=== PATIENT | female | born 1995 | race Two or more races ===

== ENCOUNTER 2016-11-09 17:49 | Emergency (ER) | payer OTHER ==
[~2016-11-09] VITALS: Ht 157.5 cm; Wt 63.5 kg
[~2016-11-09 17:49] MED LIST: AZITHROMYCIN250 MG ORAL; IBUPROFEN600 MG ORAL; NKM
[2016-11-09 18:09] VITALS: BP 109/72
[2016-11-09 18:44] LABS: APPEARANCE,URINE CLEAR; KETONES,URINE NEGATIVE (NEGATIVE); LEUKOCYTE ESTERASE ,URINE 3+ (NEGATIVE); NITRITE,URINE NEGATIVE (NEGATIVE); PH,URINE 5 (4.5-8.0); PROTEIN,URINE NEGATIVE (NEGATIVE); UROBILINOGEN,URINE NORMAL MG/DL (0.0-1.0)
[2016-11-09 18:55] LABS: RBC,URINE 0-2 /HPF (0 - 2); WBC,URINE 0-2 /HPF (0 - 2)
[2016-11-09 18:56] LABS: BACTERIA,URINE FEW /HPF; SQUAMOUS EPITHELIAL CELL,UR OCCASIONAL /LPF (NONE/OCC)
[2016-11-09] MEDS ORDERED: TERBINAFINE HC250 MG PO (19:21)
[2016-11-09] MEDS ORDERED: NITROFURANTOIN100 M2 ORAL (19:21)
[2016-11-09] MEDS ORDERED: LAMISIL15 GM TOPIC (19:21)
[2016-11-09 19:28] VITALS: BP 109/72
--- NOTE | 2016-11-09 21:26 | Emergency Room Report ---
History of Present Illness General Chief Complaint: Skin Rash/Abscess Source: Patient Present Illness HPI The patient is a 21-year-old female presenting for rash. The patient states that a rash on the scalp began one year prior she was diagnosed with eczema and given steroid cream which did not help. She then had a second opinion and was diagnosed with a fungal infection and given a topical antifungal cream. This did not help. Pain continues as well as itching. He has not noticed any hair loss. Pain is described as a 6/10 burning sensation in his worse with scratching. Pain does not radiate. She has also noticed a similar lesion on the torso. Pt does admit to dysuria and increased frequency She denies any other symptoms including N, V, F, chills, [place], dizziness, abd pain , vaginal DC, hematuria Allergies: Coded Allergies: No Known Allergies (Unverified , 09/19/15) Patient History Past Medical History: see triage record Pertinent Family History: none Last Menstrual Period: 08/22/16 Now: No - Depo shot Reviewed Nursing Documentation: PMH: Agreed, PSxH: Agreed Nursing Documentation-PMH Past Medical History: No Stated History Review of Systems All Other Systems: negative except mentioned in HPI Physical Exam Vital Signs Date Time Temp Pulse Resp B/P Pulse Ox O2 Delivery O2 Flow Rate FiO2 11/09/16 18:03 97.5 81 14 109/72 100 Room Air Sp02 EP Interpretation: reviewed, normal General Appearance: no apparent distress, alert, GCS 15, non-toxic Head: normocephalic, atraumatic Eyes: bilateral eye PERRL, bilateral eye normal inspection ENT: hearing grossly normal, normal pharynx, no angioedema, normal voice Neck: full range of motion, supple/symm/no masses Respiratory: chest non-tender, lungs clear, normal breath sounds, speaking full sentences Cardiovascular #1: regular rate, rhythm, no edema Neurologic: alert, oriented x3, responsive, motor strength/tone normal, sensory intact, speech normal Psychiatric: judgement/insight normal, memory normal, mood/affect normal, no suicidal/homicidal ideation Skin: other - erythematous base with scaling. Circular lesions of scalp. No hair loss. Similar lesion to R torso Lymphatic: adenopathy - R ocipital lymphad Medical Decision Making PA Attestation Dr. Everett is my supervising physician. Patient management was discussed with my supervising physician Diagnostic Impression: Primary Impression: Urinary tract infection Qualified Codes: N39.0 - Urinary tract infection, site not specified Additional Impressions: Tinea capitis Tinea corporis ER Course The patient is a 21-year-old female presenting for rash Ddx considered include but not limited to insect bite, contact dermatitis, eczema, cellulitis, tinea Differential diagnosis considered but not limited to: UTI, BV, yeast infection, pyelonephritis, PID, PE: vitals WNl. NAD. Scalp: erythematous base with scaling. Multiple scattered circular lesions. No hair loss. Similar lesion to R torso Abdomen: Normal appearance. Non distended. No ecchymosis. Normal BS. No McBurney point tenderness. No guarding. No CVA tenderness Due to symptoms and 3+ leukocytosis, pt will be treated for UTI The patient discharged home with a prescription for Macrobid, topical, and systemic lamisil and is given ER precautions. Laboratory Tests Test 11/09/16 18:20 Urine Color Pale yellow Urine Appearance Clear Urine pH 5 (4.5-8.0) Urine Specific [place] 1.020 (1.005-1.035) Urine Protein Negative (NEGATIVE) Urine Glucose (UA) Negative (NEGATIVE) Urine Ketones Negative (NEGATIVE) Urine Occult Blood 1+ (NEGATIVE) H Urine Nitrite Negative (NEGATIVE) Urine Bilirubin Negative (NEGATIVE) Urine Urobilinogen Normal MG/DL (0.0-1.0) Urine Leukocyte Esterase 3+ (NEGATIVE) H Urine RBC 0-2 /HPF (0 - 2) Urine WBC 0-2 /HPF (0 - 2) Urine Squamous Epithelial Cells Occasional /LPF Urine Bacteria Few /HPF (NONE) Urine HCG, Qualitative Negative Lab Results Impression UA shows 3+ leukocytosis with few bacteria Last Vital Signs Date Time Temp Pulse Resp B/P Pulse Ox O2 Delivery O2 Flow Rate FiO2 11/09/16 19:28 97.5 83 14 109/72 100 Room Air Status: improved Disposition: HOME, SELF-CARE Condition: Improved Scripts Terbinafine (Lamisil At) 12 Gm Cream..g. 1 APPL TOPIC BID, #12 GM Prov: TERZIANISRA P.A. 11/09/16 Nitrofurantoin Monohyd/M-Cryst* (MACROBID 100 MG*) 100 Mg Capsule 100 MG ORAL EVERY 12 HOURS, #14 CAP Prov: ISRA SMILEY 11/09/16 Terbinafine Hcl* (LAMISIL*) 250 Mg Tablet 250 MG PO DAILY, #28 TAB Prov: ISRA SMILEY 11/09/16 Patient Instructions: Body Ringworm, Urinary Tract Infection, Scalp Ringworm, Iser-ba-Jngz Additional Instructions: I discussed my findings with the patient. All questions and concerns have been answered. Treatment and medication compliance have been addressed. I advised the patient that they need to follow up with PMD in 3-5 days. Return to ED if symptoms worsen, new symptoms arise, or if needed for any reason. Patient verbalized understanding of discharge instructions. ISRA SMILEY November 09, 2016 21:25
== END 2016-11-09 19:30 | disposition home or self-care (01) ==
LOC: EMR 18:15
DX: N39.0 Urinary tract infection, site not specified (principal); B35.0 Tinea barbae and tinea capitis; B35.4 Tinea corporis
CPT/HCPCS: 81003; 81025; 99284

== ENCOUNTER 2018-12-11 20:09 | Emergency (ER) | payer MEDICAID, OTHER ==
[~2018-12-11] VITALS: Ht 157.5 cm; Wt 72.6 kg
[~2018-12-11 20:09] MED LIST changes: +LAMISIL15 GM TOPIC; +NITROFURANTOIN100 M2 ORAL; +TERBINAFINE HC250 MG PO
--- NOTE | 2018-12-11 21:01 | Emergency Room Report ---
History of Present Illness General Chief Complaint: Lower Extremity Injury Source: Patient Present Illness HPI 23-year-old female presents to the emergency department complaining of 9 out of 10 in severity bilateral knee pain 9 days. Patient reports acute onset after a full day of dancing. Patient reports that she woke up the next morning with pain and swelling to the bilateral knees. Patient denies open wounds or bleeding she denies erythema or warmth. Patient denies specific trauma or fall. Patient denies previous injury to the knees. Patient states that in the past she has had bilateral wrist pain denies any autoimmune conditions. Patient states that her symptoms are intermittent and sporadic she states that she currently does not have any symptoms at the moment. She also reports that she has not taken any nnar-yvn-nmgserz medications to provide relief. Patient reports icing her knees aggravated her pain. No other aggravating or relieving factors. She denies weakness, clicking, paresthesias or history of STI. Denies fevers or chills. Denies suspicion of . Allergies: Coded Allergies: No Known Allergies (Unverified , 09/19/15) Patient History Past Medical History: see triage record Past Surgical History: none Pertinent Family History: none Last Menstrual Period: November 2018 (irregular) Now: No Reviewed Nursing Documentation: PMH: Agreed; PSxH: Agreed Nursing Documentation-PMH Past Medical History: No Stated History Review of Systems All Other Systems: negative except mentioned in HPI Physical Exam Vital Signs Date Time Temp Pulse Resp B/P (MAP) Pulse Ox O2 Delivery O2 Flow Rate FiO2 12/11/18 20:37 98.1 65 18 110/69 (83) 98 Room Air Sp02 EP Interpretation: reviewed, normal General Appearance: no apparent distress, alert, GCS 15, non-toxic Head: normocephalic, atraumatic Eyes: bilateral eye normal inspection, bilateral eye PERRL ENT: hearing grossly normal, normal voice Neck: full range of motion Respiratory: lungs clear, normal breath sounds, speaking full sentences Cardiovascular #1: regular rate, rhythm, no edema Cardiovascular #2: 2+ dorsalis pedis (R) - post tibial, 2+ dorsalis pedis (L) - post tibial Musculoskeletal: back normal, gait/station normal, normal range of motion, other - no increased laxity, no swelling, erythema, warmth or tenderness. Neurologic: alert, oriented x3, responsive, motor strength/tone normal, sensory intact, speech normal, grossly normal Psychiatric: judgement/insight normal Skin: normal color, no rash, warm/dry, well hydrated Medical Decision Making PA Attestation Dr. Nesbitt is my supervising physician whom pt. management has been discussed with. Diagnostic Impression: Primary Impression: Knee pain, bilateral Qualified Codes: M25.561 - Pain in right knee; M25.562 - Pain in left knee ER Course 23-year-old female presents to the emergency department complaining of 9 out of 10 in severity bilateral knee pain 9 days. Patient reports acute onset after a full day of dancing. Patient reports that she woke up the next morning with pain and swelling to the bilateral knees. Patient denies open wounds or bleeding she denies erythema or warmth. Patient denies specific trauma or fall. Patient denies previous injury to the knees. Patient states that in the past she has had bilateral wrist pain denies any autoimmune conditions. Patient states that her symptoms are intermittent and sporadic she states that she currently does not have any symptoms at the moment. She also reports that she has not taken any eaus-jbo-wkjwtsn medications to provide relief. Patient reports icing her knees aggravated her pain. No other aggravating or relieving factors. She denies weakness, clicking, paresthesias or history of STI. Denies fevers or chills. Denies suspicion of . Ddx considered but are not limited to Fracture, dislocation, contusion, septic joint, pseudo gout, gout, cellulitis, effusion , Sprain/Strain/Spasm, ligamental injury just to name a few. Vital signs: are WNL, pt. is afebrile H&PE are most consistent with knee strain/ overuse. ORDERS: X-ray 3 views of the RIGHT and LEFT knee - negative for fx, Dislocation, or significant soft tissue injury ED INTERVENTIONS: - Sheldon wrap applied to the knees bilaterally by trim technician pt. remains NVI before and after application of sheldon wraps. -I do not identify an emergent condition at this time. With current presentation , pt. is stable for close outpatient follow up and conservative treatment. D/ w pt. to return promptly to ED with worsening or new symptoms.- Pt. verbalizes' understanding and agreement with proposed treatment plan.proposed treatment plan. DISCHARGE: At this time pt. is stable for d/c to home. Will provide printed patient care instructions, and any necessary prescriptions. Care plan and follow up instructions have been discussed with the patient prior to discharge. Other X-Ray Diagnostic Results Other X-Ray Diagnostic Results #1: X-Ray ordered: Right KNee # of Views/Limited Vs Complete: 3 View Indication: Pain EP Interpretation: Yes PA Xray: Interpretation reviewed, by supervising MD, and agrees with findings. Interpretation: no dislocation, no soft tissue swelling, no fractures Impression: No acute disease Electronically Signed by: Shaila Cruz PA-C Other X-Ray Diagnostic Results #2: X-Ray ordered: Left knee # of Views/Limited Vs Complete: 3 View Indication: Pain EP Interpretation: Yes PA Xray: Interpretation reviewed, by supervising MD, and agrees with findings. Interpretation: no dislocation, no soft tissue swelling, no fractures Impression: No acute disease Electronically Signed by: Shaila Cruz PA-C Last Vital Signs Date Time Temp Pulse Resp B/P (MAP) Pulse Ox O2 Delivery O2 Flow Rate FiO2 12/11/18 20:37 98.1 65 18 110/69 (83) 98 Room Air Status: improved Disposition: HOME, SELF-CARE Condition: Stable Patient Instructions: Knee Sprain Additional Instructions: Take medications as directed. Follow up with an [employer] in 3-5 days, even if your symptoms have resolved. If symptoms persist MRI may be required at the discretion of your PCP or Ortho Specialist. --Please review list of primary care clinics, if you do not already have a primary care provider who can give you an Orthopedic Referral. Return sooner to ED if new symptoms occur, or current symptoms become worse. - Please note that this Emergency Department Report was dictated using [employer] maker technology software, occasionally this can lead to erroneous entry secondary to interpretation by the dictation equipment. Shaila Cruz Dec 11, 2018 21:01
[2018-12-11] MEDS ORDERED: IBUPROFEN600 MG ORAL (21:25)
[2018-12-11] MEDS ORDERED: VOLTAREN100 G1 TP (21:25)
[2018-12-11 21:51] VITALS: BP 123/71
--- NOTE | 2018-12-12 17:47 | Diagnostic Imaging Report ---
Indication: Left knee pain Technique: 3 views of the left knee Comparison: None Findings: No acute fractures. No dislocations. No suprapatellar effusion. The joint spaces are preserved Impression: Negative
--- NOTE | 2018-12-12 17:47 | Diagnostic Imaging Report ---
Indication: Right knee pain Technique: 3 views of the right knee Comparison: None Findings: Bony alignment is normal. No suprapatellar effusion. No acute fractures or dislocations. The joint spaces are preserved Impression: Negative
== END 2018-12-11 21:53 | disposition home or self-care (01) ==
LOC: EMR 21:22
DX: M25.562 Pain in left knee (principal); M25.561 Pain in right knee
CPT/HCPCS: 99284